=== PATIENT | female | born 1945 | race Caucasian/White ===

== ENCOUNTER 2017-12-11 08:23 | Outpatient (CLI) | payer OTHER ==
[~2017-12-11 08:23] MED LIST: AVALIDE 300-12.1 TA1; CEFADROXIL500 MG PO; FLECAINIDE ACET50 MG; SYNTHROID88 MCG; TOPROL XL200 MG
== END 2017-12-11 08:40 | disposition home or self-care (01) ==
LOC: SONOGRAMA 08:23
DX: R10.9 Unspecified abdominal pain (principal)

== ENCOUNTER 2017-12-13 13:40 | Outpatient (CLI) | payer OTHER | END 2017-12-13 13:42 | disposition home or self-care (01) | LOC: SONOGRAMA 13:40 | DX: C56.9 Malignant neoplasm of unspecified ovary (principal); N85.00 Endometrial hyperplasia, unspecified ==

== ENCOUNTER 2018-04-30 12:34 | Outpatient (CLI) | payer OTHER | END 2018-04-30 12:39 | disposition home or self-care (01) | LOC: RAD 12:34 | DX: R05 Cough (principal); Z87.891 Personal history of nicotine dependence ==

== ENCOUNTER 2018-08-17 08:24 | Outpatient (CLI) | payer OTHER | END 2018-08-17 08:28 | disposition home or self-care (01) | LOC: SONOGRAMA 08:24 | DX: E04.0 Nontoxic diffuse goiter (principal) ==

== ENCOUNTER 2018-08-17 10:05 | Outpatient (CLI) | payer OTHER | END 2018-08-17 10:29 | disposition home or self-care (01) | LOC: NUCLEAR 10:05 | DX: M85.80 Other specified disorders of bone density and structure, unspecified site (principal); M81.0 Age-related osteoporosis without current pathological fracture ==

== ENCOUNTER 2019-01-30 07:24 | Outpatient (CLI) | payer OTHER | END 2019-01-30 07:38 | disposition home or self-care (01) | LOC: TOM 07:24 | DX: K57.30 Diverticulosis of large intestine without perforation or abscess without bleeding (principal); I11.9 Hypertensive heart disease without heart failure ==

== ENCOUNTER → 2019-04-11 | Outpatient (CLI) | payer OTHER | END | disposition home or self-care (01) | LOC: MAMO-SONO 09:58 | DX: N60.11 Diffuse cystic mastopathy of right breast (principal); N60.12 Diffuse cystic mastopathy of left breast; Z12.31 Encounter for screening mammogram for malignant neoplasm of breast; Z87.898 Personal history of other specified conditions ==

== ENCOUNTER 2020-07-02 10:40 | Outpatient (CLI) | payer OTHER | END 2020-07-02 10:43 | disposition home or self-care (01) | LOC: MAMO-SONO 10:40 | PROVIDERS: ATTEND Specialist | DX: Z12.31 Encounter for screening mammogram for malignant neoplasm of breast (principal); N64.59 Other signs and symptoms in breast ==

== ENCOUNTER 2020-09-01 09:27 | Outpatient (CLI) | payer OTHER | END 2020-09-01 09:37 | disposition home or self-care (01) | LOC: NUCLEAR 09:27 | PROVIDERS: ATTEND Specialist | DX: M81.0 Age-related osteoporosis without current pathological fracture (principal) ==

== ENCOUNTER 2021-02-09 08:26 | Outpatient (CLI) | payer OTHER | END 2021-02-09 08:34 | disposition home or self-care (01) | LOC: RAD 08:26 | PROVIDERS: ATTEND Internal Medicine Cardiovascular Disease | DX: J62.8 Pneumoconiosis due to other dust containing silica (principal) ==

== ENCOUNTER → 2021-03-31 | Outpatient (CLI) | payer OTHER | END | disposition home or self-care (01) | LOC: MRI 11:15 | DX: M54.12 Radiculopathy, cervical region (principal) | CPT/HCPCS: 72141 ==

== ENCOUNTER 2022-07-11 13:04 | Outpatient (CLI) | payer OTHER | END 2022-07-11 13:24 | disposition home or self-care (01) | LOC: MRI 13:04 | PROVIDERS: ATTEND Internal Medicine Cardiovascular Disease | DX: G54.2 Cervical root disorders, not elsewhere classified (principal); M48.00 Spinal stenosis, site unspecified | CPT/HCPCS: 72141 ==

== ENCOUNTER → 2022-08-25 | Outpatient (CLI) | payer OTHER | END | disposition home or self-care (01) | LOC: MAMO-SONO 09:08 | PROVIDERS: ATTEND Specialist | DX: N63.11 Unspecified lump in the right breast, upper outer quadrant (principal) ==

== ENCOUNTER 2022-09-02 11:01 | Outpatient (CLI) | payer OTHER | END 2022-09-02 14:11 | disposition home or self-care (01) | LOC: NUCLEAR 11:01 | PROVIDERS: ATTEND Specialist | DX: M81.0 Age-related osteoporosis without current pathological fracture (principal) ==

== ENCOUNTER 2023-04-14 10:27 | Outpatient (CLI) | payer OTHER | END 2023-04-14 10:33 | disposition home or self-care (01) | LOC: SONOGRAMA 10:27 | PROVIDERS: ATTEND Internal Medicine Endocrinology, Diabetes & Metabolism | DX: E04.2 Nontoxic multinodular goiter (principal) ==

== ENCOUNTER 2024-06-14 08:34 | Outpatient (CLI) | payer OTHER | END 2024-06-14 08:42 | disposition home or self-care (01) | LOC: MAMO-SONO 08:34 | PROVIDERS: ATTEND Internal Medicine Cardiovascular Disease | DX: E04.1 Nontoxic single thyroid nodule (principal); N60.11 Diffuse cystic mastopathy of right breast; N60.12 Diffuse cystic mastopathy of left breast; Z12.31 Encounter for screening mammogram for malignant neoplasm of breast ==